=== PATIENT | female | born 1975 | race Caucasian/White ===

== ENCOUNTER 2016-12-14 16:11 | Observation (INO) | payer BC, OTHER ==
[~2016-12-14] VITALS: Ht 175.3 cm; Wt 114.0 kg
[2016-12-14 16:14] VITALS: BP 102/55; PULSE 70; RESP 22; TEMP 98.3; O2SAT 99
--- NOTE | 2016-12-14 16:20 | PD ---
Physical Exam Date Seen by Provider: Dec 14, 2016 Time Seen by Provider: 16:16 Narrative 41 YOWF C/O LBP FROM DR PABLO. PAIN WORSE TODAY AFTER BENDING DOWN. NO SADDLE ANETHESIA. NO BOWEL OR BLADDER CHANGES. POS PAIN AND TINGLING DOWN BOTH LEGS. PAIN 10/10. VS NOTED WAITING FOR BED PLACEMENT Data Data Last Documented VS Vital Signs Date Time Temp Pulse Resp B/P (MAP) Pulse Ox O2 Delivery O2 Flow Rate FiO2 12/14/16 16:14 98.3 70 22 102/55 (71) 99 Room Air [facility] Medical Record Reviewed: No Supervised Visit with VENKAT: Yes Alex Fine Dec 14, 2016 16:20
[2016-12-14] MEDS ORDERED: LEVO.15 PO (17:08)
[2016-12-14] MEDS ORDERED: CYCL5TAB PO (17:08)
[2016-12-14] MEDS ORDERED: ONDANSETRON HCL 4 MG/2 ML VIAL IVP ONE (17:30)
[2016-12-14] MEDS ORDERED: ORPHENADRINE INJ 60 MG/2 ML AMP IM ONE (17:30)
[2016-12-14] MEDS ORDERED: MORPHINE SULFATE 8 MG/ML INJ IV PUSH ONE (17:30)
[2016-12-14] MEDS ORDERED: SODIUM CHLORIDE 0.9% FLUSH 10 ML FLUSH IV FLUSH PRN ×2 (17:30→22:45)
--- NOTE | 2016-12-14 17:37 | PD ---
HPI Chief Complaint: Back/ Neck Pain or Injury Time Seen by Provider: 17:18 Travel History International Travel<30 days: No Contact w/Intl Traveler<30days: No Traveled to known affect area: No History of Present Illness HPI Patient is a 41-year-old female presents emergency Department with low back pain. Patient states she has a history of degenerative disc disease. She is followed by Dr. Aranda. She states that she bent over this morning and felt a pop in her back and has been unable to ambulate since and is having extreme radiculopathy symptoms down both legs. She's also been having some pain and numbness and tingling in both legs as well as in the inguinal fold area. She denies any true saddle anesthesia. She's not urinated since this morning but states that she has not been drinking any fluids because she doesn't think that she can get up off the toilet if she had to get on it. She denies any fever denies any history of IV drug use. She did go and see Dr. Aranda's PA today who sent her here to evaluate for possible slipped disc. [facility] Past Medical History Neurologic: Yes (3 bulged discs in back, lumbar region) Influenza Vaccination: No ?: Not Dilation and Curettage (D&C): Yes (ablation) Past Surgical History Other Surgery: Yes (breast reduction) Social History Alcohol Use: Yes (3-4 beer/liquor 1-2 times weekly) Tobacco Use: No Substance Use: No Allergies-Medications (Allergen,Severity, Reaction): Coded Allergies: No Known Allergies (Verified , 12/14/16) Reported Meds & Prescriptions Reported Meds & Active Scripts Active Reported Flexeril (Cyclobenzaprine HCl) 5 Mg Tab 5 Mg PO TID Synthroid (Levothyroxine Sodium) 150 Mcg Tab 150 Mcg PO DAILY Review of Systems Except as stated in HPI: all other systems reviewed are Neg Physical Exam Narrative GENERAL: Well-developed well-nourished appears uncomfortable SKIN: Focused skin assessment warm/dry. HEAD: Atraumatic. Normocephalic. EYES: Pupils equal and round. No scleral icterus. No injection or drainage. ENT: No nasal bleeding or discharge. Mucous membranes pink and moist. NECK: Trachea midline. No JVD. CARDIOVASCULAR: Regular rate and rhythm. No murmur appreciated. RESPIRATORY: No accessory muscle use. Clear to auscultation. Breath sounds equal bilaterally. GASTROINTESTINAL: Abdomen soft, non-tender, nondistended. Hepatic and splenic margins not palpable. MUSCULOSKELETAL: No obvious deformities. No clubbing. No cyanosis. No edema. No midline CT or L-spine tenderness. There is some tenderness just to the left of midline in the low lumbar spine. Patient has 5 out of 5 strength in both lower extremities in plantar and dorsal flexion as well as flexion and extension at the knee. Positive straight leg raise on the right. NEUROLOGICAL: Awake and alert. No obvious cranial nerve deficits. Motor grossly within normal limits. Normal speech. sensory to light touch is intact bilaterally equal over L4-L5 and S1 dermatomes. Reflexes are 2+ and bilaterally equal. Rectal tone normal. PSYCHIATRIC: Appropriate mood and affect; insight and judgment normal. Data Data Last Documented VS Vital Signs Date Time Temp Pulse Resp B/P (MAP) Pulse Ox O2 Delivery O2 Flow Rate FiO2 12/14/16 19:40 Room Air 12/14/16 18:11 96 12/14/16 16:14 98.3 70 22 Orders Orders Mri L Spine W/O Contrast (12/14/16 17:24) Complete Blood Count With Diff (12/14/16 17:24) Basic Metabolic Panel (Bmp) (12/14/16 17:24) Iv Access Insert/Monitor (12/14/16 17:24) Ecg Monitoring (12/14/16 17:24) Oximetry (12/14/16 17:24) Ondansetron Inj (Zofran Inj) (12/14/16 17:30) Morphine Inj (Morphine Inj) (12/14/16 17:30) Orphenadrine Inj (Norflex Inj) (12/14/16 17:30) Sodium Chlor 0.9% 1000 Ml Inj (Ns 1000 M (12/14/16 19:45) Admit Order (Ed Use Only) (12/14/16 ) Consult Orthopedic (12/14/16 ) [facility] Medical Decision Making Medical Screen Exam Complete: Yes Emergency Medical Condition: Yes Differential Diagnosis Cauda equina syndrome seems unlikely, degenerative disc disease, ruptured intervertebral disc, occult fracture Narrative Course Patient roomed in the emergency department she does appear somewhat painful. Given her degenerative disc disease in her numbness and tingling in the inguinal fold area I will pursue an MRI. Last 24 hours Impressions Lumbar Spine MRI 12/14/16 3674 Signed Impressions: Service Date/Time: December 19:35 - CONCLUSION: 1. Degenerative disc disease with Modic endplate changes limited to L4-5 and L5- S1. 2. Diffuse disc bulge at L4-5. Spinal canal and neural foramina remain patent. 3. Left posterior disc protrusion at L5-S1 which encroaches on the lateral recess and appears to compromise the nerve rootlets of S1 as they move laterally. This probably explains any left-sided symptoms the patient is experiencing. Toni Long MD The results were reviewed with the patient as well as Dr. Henson who is on for Dr. Aranda and at this point recommends checking a postvoid residual. The patient is unable to ambulate despite pain management with morphine and Norflex. Her pain is better but she was unable to bear weight secondary to pain. She will be placed into admission under Dr. Romero. Post void residual was checked and was 350 cc. Diagnosis Primary Impression: Intractable back pain Additional Impressions: Sciatica Inability to ambulate due to multiple joints Admitting Information Admitting Physician Requests: Observation Condition: Stable Jamie Gallardo MD Dec 14, 2016 17:37
[2016-12-14 18:11] VITALS: O2SAT 96
[2016-12-14] MEDS ORDERED: SODIUM CHLOR 0.9% 1000 ML INJ 1,000 ML IV ONE (19:45)
--- NOTE | 2016-12-14 20:30 | RADRPT ---
EXAM DATE/TIME: 12/14/2016 19:35 [place] COMPARISON: No previous studies available for comparison. INDICATIONS : Pain. MEDICAL HISTORY : None. SURGICAL HISTORY : Uterine ablation. ENCOUNTER: Initial ACUITY: 1 day PAIN SCORE: 8/10 LOCATION: Lower back. TECHNIQUE: Multiplanar multisequence MRI of the lumbar spine was performed without contrast. FINDINGS: Sagittal T1, T2 and inversion recovery images to degenerative disc disease predominantly limited to t he L4-5 and L5-S1 levels with Modic endplate changes and disc bulges. The bulge at L4 is more diffuse with a focal left posterior disc at L5-S1. These both encroach on the spinal canal. Vertebral body h eights are maintained without fracture or listhesis. Detailed axial images as follows: T12-L1: The thecal sac has a normal diameter. No evidence of disc bulge or protrusion. The neural foramina are patent bilaterally. L1-L2: The thecal sac has a normal diameter. No evidence of disc bulge or protrusion. The neural foramina are patent bilaterally. L2-L3: The thecal sac has a normal diameter. No evidence of disc bulge or protrusion. The neural foramina are patent bilaterally. L3-L4: The thecal sac has a normal diameter. No evidence of disc bulge or protrusion. The neural foramina are patent bilaterally. L4-L5: Multiple diffuse disc bulge. Spinal canal and neural foramina remain patent L5-S1: Left posterior disc encroaches on the lateral recess and appears to compromise the nerve rootlets of S1 as they move laterally. Otherwise, both neural foramina are adequate. CONCLUSION: 1. Degenerative disc disease with Modic endplate changes limited to L4-5 and L5-S1. 2. Diffuse disc bulge at L4-5. Spinal canal and neural foramina remain patent. 3. Left posterior disc protrusion at L5-S1 which encroaches on the lateral recess and appears to comp romise the nerve rootlets of S1 as they move laterally. This probably explains any left-sided symptom s the patient is experiencing. Toni Long MD on December 14, 2016 at 20:21 Board Certified Radiologist. This report was verified electronically.
[2016-12-14] MEDS ORDERED: NALOXONE HCL 0.4 MG/ML AMP IV PRN (22:45)
[2016-12-14 22:51] VITALS: BP 122/56; PULSE 67; RESP 22; O2SAT 98
[2016-12-14] MEDS: HYDROmorphone HCL PF 1 MG/ML VIAL IV PUSH PRN (22:51)
[2016-12-14 23:41] LABS: AUTOMATED NEUTROPHIL # 4.9 TH/MM3 (1.8-7.7); BASOPHIL # 0.1 TH/MM3 (0-0.2); BASOPHIL % 0.9 % (0.0-2.0); EOSINOPHIL # 0.1 TH/MM3 (0-0.4); EOSINOPHIL % 0.6 % (0.0-4.0); HEMO FLAGS DIFF FINAL; LYMPH % 32.4 % (9.0-44.0); LYMPHOCYTE # 2.8 TH/MM3 (1.0-4.8); MEAN CELL VOLUME 87.8 FL (80.0-100.0); MONO % 8.8 % (0.0-8.0); NEUT % 57.3 % (16.0-70.0); PLATELET COUNT 338 TH/MM3 (150-450); RED BLOOD COUNT 4.09 MIL/MM3 (4.00-5.30); RED CELL DISTRIBUTION WIDTH 13.8 % (11.6-17.2); WHITE BLOOD COUNT 8.5 TH/MM3 (4.0-11.0)
[2016-12-15] VITALS (7 sets, daily range): BP systolic 118–132; BP diastolic 64–71; PULSE 58–78; RESP 16–18; TEMP 98.1–98.8; O2SAT 97–98
[2016-12-15 00:05] LABS: BICARBONATE 28.8 MEQ/L (21.0-32.0); POTASSIUM 3.9 MEQ/L (3.5-5.1)
[2016-12-15] MEDS: HYDROmorphone HCL PF 1 MG/ML VIAL IV PUSH PRN ×2 (05:22→08:17)
[2016-12-15 08:19] LABS: BASOPHIL % 0.5 % (0.0-2.0); EOSINOPHIL # 0.1 TH/MM3 (0-0.4); EOSINOPHIL % 0.9 % (0.0-4.0); HEMATOCRIT 36.7 % (35.0-46.0); HEMO FLAGS DIFF FINAL; LYMPH % 20.5 % (9.0-44.0); MEAN CELL VOLUME 88.4 FL (80.0-100.0); MEAN CORPUSCULAR HEMOGLOBIN 28.9 PG (27.0-34.0); MEAN CORPUSCULAR HGB CONC 32.7 % (32.0-36.0); MONO % 6.8 % (0.0-8.0); NEUT % 71.3 % (16.0-70.0); PLATELET COUNT 328 TH/MM3 (150-450); RED BLOOD COUNT 4.16 MIL/MM3 (4.00-5.30); RED CELL DISTRIBUTION WIDTH 13.9 % (11.6-17.2); WHITE BLOOD COUNT 9.8 TH/MM3 (4.0-11.0)
[2016-12-15 08:46] LABS: BICARBONATE 27.3 MEQ/L (21.0-32.0); POTASSIUM 3.7 MEQ/L (3.5-5.1)
[2016-12-15] MEDS ORDERED: SODIUM CHLORIDE 0.9% FLUSH 10 ML FLUSH IV FLUSH SCH (09:00)
[2016-12-15] MEDS ORDERED: LEVOTHYROXINE SODIUM 150 MCG TAB PO SCH (09:30)
--- NOTE | 2016-12-15 09:45 | HHI.HP ---
[facility] Primary [facility] Physician No Primary Care Physician Admission Diagnosis Inability to ambulate, Intractible Back pain. Diagnoses: Chief Complaint: back pain Travel History International Travel<30 Days: No Contact w/Intl Traveler <30 Da: No Traveled to Known Affected Are: No History of Present Illness Written by Kristin Hyde, acting as scribe for Dr. Soto on 12/15/16 at 09:43. This note was transcribed by scribe Kristin Hyde PA-C. I, Dr. Hans Soto personally performed the history, physical exam, and medical decision making; and confirmed the accuracy of the information in the transcribed note. Authenticated by Dr. Hans Soto on 12/15/16 at 23:34. 41-year-old female with history of chronic back pain, hypothyroidism, presents with a 1 day history of acute onset of low back pain. The patient reports yesterday she was taking clothes out of the washer and into the dryer when she immediately felt a "pop" and pulling sensation in her lower back. She was unable to ambulate immediately after. Denies fall. She locates the pain diffusely across the lower back with radiation down both buttocks and hips, worse on the right side, with bilateral distal lower extremity tingling down the legs. She follows with orthopedic surgeon Dr. Funez, and was seen in the office yesterday after the incident. MRI was ordered but unable to be done as outpatient, and pain was too severe to go home therefore the DONOVAN referred her to the ER. Since her arrival to the ER, the patient complains of urinary retention and has not been able to urinate. A cardozo was placed and removed while in the ER and now the patient still cannot void spontaneously. Denies any fevers/chills, abdominal pain, nausea/vomiting, or diarrhea. The patient has flexeril and some old lortab but she usually doesn't take these since she only has minimal relief. The patient also sees Dr. Johnson with pain management in [place]. She has had 2 steroid injections in the lumbar spine, most recently 3-4 weeks ago, and she states the injections help her the most. She is requesting neurosurgery evaluation. The patient has no other medical complaints at this time, including no chest pain, shortness of breath, or abdominal complaints. Review of Systems Except as stated in HPI: all other systems reviewed are Neg Past Family Social History Past Medical History Hypothyroidism Chronic low back pain Cervical spine disc bulge Past Surgical History Breast reduction 17years ago Reported Medications Flexeril (Cyclobenzaprine HCl) 5 Mg Tab 5 Mg PO TID Synthroid (Levothyroxine Sodium) 150 Mcg Tab 150 Mcg PO DAILY Allergies: Coded Allergies: No Known Allergies (Verified , 12/14/16) Active Ordered Medications Current Medications Medications (Trade) Dose Ordered Sig/Jacob Route Start Time Stop Time Status Last Admin (NS Flush) 2 ml UNSCH PRN IV FLUSH 12/14/16 22:45 (NS Flush) 2 ml BID IV FLUSH 12/15/16 09:00 12/15/16 08:15 (Narcan Inj) 0.4 mg UNSCH PRN IV 12/14/16 22:45 (Dilaudid Pf Inj) 0.2 mg Q2H PRN IV PUSH 12/14/16 22:45 12/15/16 08:17 (Synthroid) 150 mcg DAILY@0600 PO 12/15/16 09:30 12/15/16 09:33 Family History Father with hypertension, stroke at age 62 Mother with hypertension Social History Denies tobacco use Social alcohol use, 1-2x per week Denies any illicit drug use Physical Exam Vital Signs Vital Signs Date Time Temp Pulse Resp B/P (MAP) Pulse Ox O2 Delivery O2 Flow Rate FiO2 12/15/16 07:41 98.3 58 16 121/67 (85) 97 12/15/16 07:00 58 12/15/16 05:52 12 12/15/16 04:41 98.8 78 18 121/68 (85) 98 12/15/16 04:04 59 12/15/16 01:28 98.1 74 18 118/64 (82) 98 12/15/16 01:04 68 12/14/16 22:51 67 22 122/56 (78) 98 Room Air 12/14/16 19:40 Room Air 12/14/16 18:11 96 Room Air 12/14/16 16:14 98.3 70 22 102/55 (71) 99 Room Air Physical Exam GENERAL: Well-nourished, well-developed middle aged female patient in NAD. SKIN: Warm and dry. No rash. HEAD: Normocephalic. Atraumatic. EYES: Pupils equal and round. No scleral icterus. No injection or drainage. ENT: No nasal bleeding or discharge. Mucous membranes pink and moist. NECK: Supple. Trachea midline. CARDIOVASCULAR: Regular rate and rhythm. S1, S2 noted. No murmur appreciated. RESPIRATORY: No accessory muscle use. Clear to auscultation. Breath sounds equal bilaterally. GASTROINTESTINAL: Abdomen soft, non-tender, nondistended. Normoactive bowel sounds x4. MUSCULOSKELETAL: No obvious deformities. Extremities without clubbing, cyanosis , or edema. Bilateral straight leg raise produces back pain. NEUROLOGICAL: Awake and alert. No obvious cranial nerve deficits. Motor grossly within normal limits. 5/5 muscle strength with plantar/dorsiflexion bilaterally, however 4/5 strength with hip flexion secondary to pain. 5/5 strength of bilateral upper extremities. Normal speech. PSYCHIATRIC: Appropriate mood and affect; insight and judgment normal. Laboratory Laboratory Tests Test 12/14/16 23:30 12/15/16 07:09 White Blood Count 8.5 9.8 Red Blood Count 4.09 4.16 Hemoglobin 11.9 12.0 Hematocrit 36.0 36.7 Mean Corpuscular Volume 87.8 88.4 Mean Corpuscular Hemoglobin 29.0 28.9 Mean Corpuscular Hemoglobin Concent 33.0 32.7 Red Cell Distribution Width 13.8 13.9 Platelet Count 338 328 Mean Platelet Volume 7.5 8.0 Neutrophils (%) (Auto) 57.3 71.3 Lymphocytes (%) (Auto) 32.4 20.5 Monocytes (%) (Auto) 8.8 6.8 Eosinophils (%) (Auto) 0.6 0.9 Basophils (%) (Auto) 0.9 0.5 Neutrophils # (Auto) 4.9 7.0 Lymphocytes # (Auto) 2.8 2.0 Monocytes # (Auto) 0.7 0.7 Eosinophils # (Auto) 0.1 0.1 Basophils # (Auto) 0.1 0.0 CBC Comment DIFF FINAL DIFF FINAL Differential Comment Blood Urea Nitrogen 9 11 Creatinine 0.90 0.82 Random Glucose 99 100 Calcium Level 8.1 7.7 Sodium Level 140 139 Potassium Level 3.9 3.7 Chloride Level 107 105 Carbon Dioxide Level 28.8 27.3 Anion Gap 4 7 Estimat Glomerular Filtration Rate 69 76 Result Diagram: 12/15/16 0709 12/15/16 0709 Imaging Last Impressions Lumbar Spine MRI 12/14/16 [id number] Signed Impressions: Service Date/Time: December 19:35 - CONCLUSION: 1. Degenerative disc disease with Modic endplate changes limited to L4-5 and L5- S1. 2. Diffuse disc bulge at L4-5. Spinal canal and neural foramina remain patent. 3. Left posterior disc protrusion at L5-S1 which encroaches on the lateral recess and appears to compromise the nerve rootlets of S1 as they move laterally. This probably explains any left-sided symptoms the patient is experiencing. MD Zaida Ruano VTE Risk Assessment Zaida VTE Risk Assessment: No/Low Risk (score <= 1) Caprini Risk Assessment Model Point Value = 1 Point Value = 2 Point Value = 3 Point Value = 5 Age 41-60 Minor surgery BMI > 25 kg/m2 Swollen legs Varicose veins or History of unexplained or recurrent spontaneous Oral contraceptives or hormone replacement Sepsis (< 1 month) Serious lung disease, including pneumonia (< 1 month) Abnormal pulmonary function Acute myocardial infarction Congestive heart failure (< 1 month) History of inflammatory bowel disease Medical patient at bed rest Age 61-74 Arthroscopic surgery Major open surgery (> 45 min) Laparoscopic surgery (> 45 min) Malignancy Confined to bed (> 72 hours) Immobilizing plaster cast Central venous access Age >= 75 History of VTE Family history of VTE Factor V Leiden Prothrombin [id number] Lupus anticoagulant Anticardiolipin antibodies Elevated serum homocysteine Heparin-induced thrombocytopenia Other congenital or acquired thrombophilia Stroke (< 1 month) Elective arthroplasty Hip, pelvis, or leg fracture Acute spinal cord injury (< 1 month) Prophylaxis Regimen Total Risk Factor Score Risk Level Prophylaxis Regimen 0-1 Low Early ambulation 2 Moderate Order ONE of the following: *Sequential Compression Device (SCD) *Heparin 5000 units SQ BID 3-4 Higher Order ONE of the following medications: *Heparin 5000 units SQ TID *Enoxaparin/Lovenox 40 mg SQ daily (WT < 150 kg, CrCl > 30 mL/min) *Enoxaparin/Lovenox 30 mg SQ daily (WT < 150 kg, CrCl > 10-29 mL/min) *Enoxaparin/Lovenox 30 mg SQ BID (WT < 150 kg, CrCl > 30 mL/min) AND/OR *Sequential Compression Device (SCD) 5 or more Highest Order ONE of the following medications: *Heparin 5000 units SQ TID (Preferred with Epidurals) *Enoxaparin/Lovenox 40 mg SQ daily (WT < 150 kg, CrCl > 30 mL/min) *Enoxaparin/Lovenox 30 mg SQ daily (WT < 150 kg, CrCl > 10-29 mL/min) *Enoxaparin/Lovenox 30 mg SQ BID (WT < 150 kg, CrCl > 30 mL/min) AND *Sequential Compression Device (SCD) Assessment and Plan Problem List: (1) Lumbar disc herniation with radiculopathy ICD Code: M51.16 - Intervertebral disc disorders with radiculopathy, lumbar region Assessment and Plan 41-year-old female with history of chronic back pain, hypothyroidism, presents with a 1 day history of acute onset of low back pain. Lumbar Disc Herniation with Acute on Chronic Back Pain: Lumbar spine MRI images reviewed, shows diffuse disc bulge at L4-5, left posterior disc protrusion at L5 -S1 which encroaches on the lateral recess and appears to compromise the nerve rootlets of S1. -Consult orthopedics, seen by Dr. Funez -Continue pain control with ibuprofen, oxycodone prn pain scale, and IV dilaudid prn breakthrough pain -Valium 5mg bid prn muscle spasms -K thermia pad -Consult neurosurgery -Consult PT Hypothyroidism: chronic, stable -continue home levothyroxine DVT Prophylaxis: teds/SCDs Update around 6PM on 12/15/2016: Patient was evaluated by neurosurgery. No immediate neurosurgery was indicated. Patient also voided on her own and did not require a Cardozo Catheter. Neurosurgery recommended epidural steroid injection which patient has been receiving periodically by her pain management doctor. At this time, IR is not able to perform an elective steroid injection procedure. Patient would rather go home. She will follow up with her pain management doctor. Patient is hemodynamically stable. We discharged patient home. RN called around and helped patient's find a walker and bedside commode for patient. Discharge patient to home Condition on discharge: Improved Regular Diet as tolerated Ad Jessica activity Rx written: - Valium 5mg Q8hrs PRN #30 - Oxycodone 10mg Q6hrs PRN #28 - Prednisone 20mg BID X 5 days. Follow-up with Neurosurgery, orthopedic surgery and pain management clinic. Code Status Full Code Discussed Condition With Patient, patient's , CDU Kristin Randle PA-C Dec 15, 2016 09:45 Summer Soto DO Dec 15, 2016 23:35
[2016-12-15] MEDS ORDERED: ACETAMINOPHEN/HYDROcodone 325 MG/5 MG TAB PO PRN (10:00)
[2016-12-15] MEDS ORDERED: ACETAMINOPHEN/HYDROcodone 325 MG/7.5 MG TAB PO PRN (10:00)
[2016-12-15] MEDS ORDERED: ACETAMINOPHEN 325 MG TAB PO PRN (10:00)
[2016-12-15] MEDS ORDERED: HYDROmorphone HCL PF 1 MG/ML VIAL IV PUSH PRN (10:00)
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
[2016-12-15] MEDS ORDERED: DIAZEPAM 5 MG TAB PO ONE (10:30)
[2016-12-15] MEDS ORDERED: IBUPROFEN 600 MG TAB PO PRN (10:30)
[2016-12-15] MEDS ORDERED: DIAZEPAM 5 MG TAB PO PRN (10:30)
--- NOTE | 2016-12-15 15:30 | PD.CONS ---
HPI Consult Requested By Primary Care Physician No Primary Care Physician History of Present Illness This is a 41-year-old female with chronic back and leg pain. She had an MRI scan performed the at [facility] in May which showed bulging of the disc with some degenerative changes at L4-5. L5-S1 with a Central bulging disc eccentric to the left. She was sent to [facility] for epidural steroid injections and saw Dr. Johnson. after the injection she improved and did fairly well. Yesterday while at home, she was bent over, had felt a "pop" in her back and had acute onset of predominately back pain radiating into the right leg, with bilateral leg pain and tingling. She was seen at Dr Aranda's office. X-rays were unremarkable. She is sent to the emergency room at [facility]. She was evaluated by the emergency room doctor and placed in holding for pain control. MRI lumbar spine was ordered. Neurosurgical consultation was requested. Past Family Social History Allergies: Coded Allergies: No Known Allergies (Verified , 12/14/16) Past Medical History Hypothyroidism Chronic back pain Past Surgical History A breast reduction. Reported Medications 1. Flexeril 2. Synthroid Active Ordered Medications Current Medications Ondansetron HCl (Zofran Inj) 4 mg ONCE ONCE IVP Last administered on 12/14/16 18:10; Start 12/14/16 at 17:30; Stop 12/14/16 at 17:31; Status DC Sodium Chloride (NS Flush) 2 ml UNSCH PRN IV FLUSH FLUSH AFTER USING IV ACCESS ; Start 12/14/16 at 17:30; Status Cancel Morphine Sulfate (Morphine Inj) 5 mg ONCE ONCE IV PUSH Last administered on 18:10; Start 12/14/16 at 17:30; Stop 12/14/16 at 17:31; Status DC Orphenadrine Citrate (Norflex Inj) 60 mg ONCE ONCE IM Last administered on 12/14 18:09; Start 12/14/16 at 17:30; Stop 12/14/16 at 17:31; Status DC Sodium Chloride 1,000 ml @ 999 mls/hr BOLUS ONCE IV Last administered on 19:45; Start 12/14/16 at 19:45; Stop 12/14/16 at 20:45; Status DC Sodium Chloride (NS Flush) 2 ml UNSCH PRN IV FLUSH FLUSH AFTER USING IV ACCESS ; Start 12/14/16 at 22:45 Sodium Chloride (NS Flush) 2 ml BID IV FLUSH Last administered on 12/15/16 08: 15; Start 12/15/16 at 09:00 Naloxone HCl (Narcan Inj) 0.4 mg UNSCH PRN IV SEE LABEL COMMENTS; Start at 22:45 Hydromorphone HCl (Dilaudid Pf Inj) 0.2 mg Q2H PRN IV PUSH PAIN >5 Last administered on 12/15/16 08:17; Start 12/14/16 at 22:45; Stop 12/15/16 at 09:53; Status DC Levothyroxine Sodium (Synthroid) 150 mcg DAILY@0600 PO Last administered on 12/15 09:33; Start 12/15/16 at 09:30 Hydromorphone HCl (Dilaudid Pf Inj) 0.5 mg Q3H PRN IV PUSH breakthrough pain; Start 12/15/16 at 10:00 Acetaminophen (Tylenol) 650 mg Q4H PRN PO headache/fever/pain1-4; Start at 10:00; Stop 12/15/16 at 10:30; Status DC Acetaminophen/ Hydrocodone Bitart (Burdine 7.5-325 Mg) 1 tab Q4H PRN PO pain scale 8-10; Start 12/15/16 at 10:00; Stop 12/15/16 at 10:30; Status DC Acetaminophen/ Hydrocodone Bitart (Burdine 5-325 Mg) 1 tab Q4H PRN PO pain scale 5-7; Start 12/15/16 at 10:00; Stop 12/15/16 at 10:30; Status DC Ibuprofen (Motrin) 600 mg Q6H PRN PO headache/fever/pain1-4; Start 12/15/16 at 10:30 Oxycodone HCl (Roxicodone) 5 mg Q6H PRN PO pain scale 5-7 Last administered on 12/15/16 14:14; Start 12/15/16 at 10:30 Oxycodone HCl (Roxicodone) 10 mg Q6H PRN PO pain scale 8-10; Start 12/15/16 at 10:30 Diazepam (Valium) 5 mg ONCE ONCE PO Last administered on 12/15/16t 11:04; Start 12/15/16 at 10:30; Stop 12/15/16 at 10:42; Status DC Diazepam (Valium) 5 mg Q12H PRN PO muscle spasms; Start 12/15/16 at 10:30 Family History Her family history was reviewed and non contributory to this event Social History Drinks three to four beers one to two times weekly. Denies tobacco or substance abuse. Physical Exam Vital Signs Vital Signs Date Time Temp Pulse Resp B/P (MAP) Pulse Ox O2 Delivery O2 Flow Rate FiO2 12/15/16 07:41 98.3 58 16 121/67 (85) 97 12/15/16 07:00 58 12/15/16 05:52 12 12/15/16 04:41 98.8 78 18 121/68 (85) 98 12/15/16 04:04 59 12/15/16 01:28 98.1 74 18 118/64 (82) 98 12/15/16 01:04 68 12/14/16 22:51 67 22 122/56 (78) 98 Room Air 12/14/16 19:40 Room Air 12/14/16 18:11 96 Room Air 12/14/16 16:14 98.3 70 22 102/55 (71) 99 Room Air Physical Exam The patient is alert, awake and oriented to time, place and person. Speech is fluent. Higher cognitive functions are normal. Cranial nerve examination demonstrates the pupils to be equal, round, and reactive to light. Extra-ocular movements are intact. Facial motor and sensory function are normal and symmetrical. Gross hearing is intact, bilaterally. The uvula is midline and elevates symmetrically with the soft palate. Sternocleidomastoid and trapezius muscles have normal and symmetrical strength. Other cranial nerves are intact. Neck is soft and supple. Cervical spine has a full range of motion in anterior flexion, extension, lateral bending, and rotation without pain. There is no tenderness to palpation to the spinous processes or paraspinal muscles. Muscle testing reveals normal bulk and tone overall without rigidity, spasticity , fasciculations, or atrophy. Muscle strength is 5/5 in all muscle groups of both upper extremities including deltoid, biceps, triceps, brachioradialis, wrist extension and hearing aid specialist. In the lower extremities, strength is 5/5 in both iliopsoas, quadriceps, hamstrings, plantar flexion, dorsiflexion, and extensor hallicus longus. Straight leg raise reproduces back pain Sensory examination is intact to light touch and sharp/dull discrimination in both the upper and lower extremities, symmetrically. Deep tendon reflexes are 2+ and symmetrical in the biceps, triceps, and brachioradialis, bilaterally, in the upper extremities. In the lower extremities , the patellar and Achilles are 1+, bilaterally. There is a bilateral plantar flexion response. Hoffmanns sign is negative. There is no clonus or other abnormal reflexes noted. Cerebellar examination is intact to [id number] test, rapid rhythmic alternating motion. There is no dysmetria, dysdiadochokinesia, truncal ataxia, or tremor. Laboratory Laboratory Tests Test 12/14/16 23:30 12/15/16 07:09 White Blood Count 8.5 9.8 Red Blood Count 4.09 4.16 Hemoglobin 11.9 12.0 Hematocrit 36.0 36.7 Mean Corpuscular Volume 87.8 88.4 Mean Corpuscular Hemoglobin 29.0 28.9 Mean Corpuscular Hemoglobin Concent 33.0 32.7 Red Cell Distribution Width 13.8 13.9 Platelet Count 338 328 Mean Platelet Volume 7.5 8.0 Neutrophils (%) (Auto) 57.3 71.3 Lymphocytes (%) (Auto) 32.4 20.5 Monocytes (%) (Auto) 8.8 6.8 Eosinophils (%) (Auto) 0.6 0.9 Basophils (%) (Auto) 0.9 0.5 Neutrophils # (Auto) 4.9 7.0 Lymphocytes # (Auto) 2.8 2.0 Monocytes # (Auto) 0.7 0.7 Eosinophils # (Auto) 0.1 0.1 Basophils # (Auto) 0.1 0.0 CBC Comment DIFF FINAL DIFF FINAL Differential Comment Blood Urea Nitrogen 9 11 Creatinine 0.90 0.82 Random Glucose 99 100 Calcium Level 8.1 7.7 Sodium Level 140 139 Potassium Level 3.9 3.7 Chloride Level 107 105 Carbon Dioxide Level 28.8 27.3 Anion Gap 4 7 Estimat Glomerular Filtration Rate 69 76 Result Diagram: 12/15/16 0709 12/15/16 0709 Imaging Last 48 hours Impressions Lumbar Spine MRI 12/14/16 1724 Signed Impressions: Service Date/Time: December 19:35 - CONCLUSION: 1. Degenerative disc disease with Modic endplate changes limited to L4-5 and L5- S1. 2. Diffuse disc bulge at L4-5. Spinal canal and neural foramina remain patent. 3. Left posterior disc protrusion at L5-S1 which encroaches on the lateral recess and appears to compromise the nerve rootlets of S1 as they move laterally. This probably explains any left-sided symptoms the patient is experiencing. Toni Long MD Assessment and Plan Assessment and Plan 1. Bulging disc L4-5 2. Herniated nucleus pulposus central, left L5-S1. 3. Bilateral lumbosacral radiculitis. Attending Statement I discussed with her the alternatives of treatment including continuing conservative management, pain management by an interventional paint booth operator, or a surgical decompression as a last resort. She has failed to improve with conservative treatment including physical therapy, exercises, antiinflammatories. She reports significant relief in the past by epidural steroid injections performed by an interventional pain specialist I do not see significant neural compression. I recommend that she continues with nonoperative treatment with epidural steroid injections followed by physical therapy and a program of excercises for functional jew of her lumbar spine Continue neuro checks. Pulmonary.. Continue aggressive pulmonary toilette, nasotracheal suction, and breathing treatments with nebulizers. Nutrition. Oral diet Hypothyroidism.Continue Synthroid Renal. monitor closely urine output, BUN and creatinine Endocrine. Monitor serial Acu checks and SSI as needed in detail ID monitor for signs of infection Protonix for stress ulcer prophylaxis Alfonzo hose and SCD's for DVT prophylaxis Miles Holden MD Dec 15, 2016 15:30
--- NOTE | 2016-12-15 17:02 | HHI.DCPOC ---
Discharge Care Plan Diagnosis: (1) Lumbar disc herniation with radiculopathy (2) Intractable back pain Goals to Promote Your Health * To prevent worsening of your condition and complications * To maintain your health at the optimal level Directions to Meet Your Goals Take your medications as prescribed Follow your dietary instruction Follow activity as directed Keep your appointments as scheduled Take your immunizations and boosters as scheduled If your symptoms worsen call your PCP, if no PCP go to Urgent Care Center or Emergency Room Smoking is Dangerous to Your Health. Avoid second hand smoke Call the 24-hour hour crisis hotline for domestic abuse at Kristin Hyde PA-C Dec 15, 2016 17:02
[2016-12-15] MEDS ORDERED: PRED20 PO (17:27)
[2016-12-15] MEDS ORDERED: DIAZ5 PO (17:27)
[2016-12-15] MEDS ORDERED: OXYC-395 PO (17:27)
[2016-12-29] MEDS ORDERED: LEVO.15 PO (13:45)
[2017-01-26] MEDS ORDERED: OXYC-395 PO (13:14)
== END 2016-12-15 18:05 | disposition home or self-care (01) ==
LOC: NEPD 16:11 → NEDA 22:35 → NEPFCDU 12-15 00:42
PROVIDERS: ADMIT Hospitalist; ATTEND Hospitalist
DX: M51.16 Intervertebral disc disorders with radiculopathy, lumbar region (principal); M51.27 Other intervertebral disc displacement, lumbosacral region; M79.604 Pain in right leg; M79.605 Pain in left leg; E03.9 Hypothyroidism, unspecified; X50.9XXA Other and unspecified overexertion or strenuous movements or postures, initial encounter; Y93.E2 Activity, laundry; Y92.019 Unspecified place in single-family (private) house as the place of occurrence of the external cause; G89.29 Other chronic pain
CPT/HCPCS: 72148; 80048; 85025; 96361; 96372; 96374; 96375; 96376; 97162; 99285; G0378; G8987; G8988; J1170; J2270; J2360; J2405; J7030

== ENCOUNTER → 2017-01-16 | Outpatient (CLI) | payer OTHER ==
[~2017-01-16] MED LIST: DIAZ5 PO; LEVO.15 PO; OXYC-395 PO; PRED20 PO
[2017-01-16 09:25] LABS: AUTOMATED NEUTROPHIL # 4.9 TH/MM3 (1.8-7.7); BASOPHIL # 0.1 TH/MM3 (0-0.2); BASOPHIL % 0.8 % (0.0-2.0); EOSINOPHIL # 0.1 TH/MM3 (0-0.4); EOSINOPHIL % 1.6 % (0.0-4.0); HEMATOCRIT 39.1 % (35.0-46.0); HEMO FLAGS DIFF FINAL; LYMPH % 29.5 % (9.0-44.0); LYMPHOCYTE # 2.5 TH/MM3 (1.0-4.8); MEAN CELL VOLUME 89.3 FL (80.0-100.0); MEAN CORPUSCULAR HEMOGLOBIN 29.5 PG (27.0-34.0); MONO % 9.2 % (0.0-8.0); NEUT % 58.9 % (16.0-70.0); PLATELET COUNT 374 TH/MM3 (150-450); RED BLOOD COUNT 4.38 MIL/MM3 (4.00-5.30); RED CELL DISTRIBUTION WIDTH 13.1 % (11.6-17.2); WHITE BLOOD COUNT 8.4 TH/MM3 (4.0-11.0)
[2017-01-16 09:28] LABS: APTT (PATIENT) 27.5 SEC (24.3-30.1); INTERNATIONAL NORMALIZED RATIO 0.9 RATIO; PROTHROMBIN TIME - PATIENT 10.1 SEC (9.8-11.6)
[2017-01-16 09:53] LABS: BACTERIA, URINE RARE /hpf; BLOOD, URINE MOD (NEG); COMMENT (UR) CULT NOT INDICATED; CULTURE IF INDICATED CULT NOT INDICATED; GLUCOSE,URINE NEG (NEG); KETONE, URINE NEG (NEG); MUCUS URINE FEW /lpf (OCC); NITRITE,URINE NEG (NEG); PH, URINE 5.5 (5.0-8.5); SQUAMOUS EPITHELIAL CELL URINE 1 /hpf (0-5); URINE COLOR YELLOW (YELLW/STRAW)
[2017-01-16 09:55] LABS: ANION GAP 6 MEQ/L (5-15); AST (GOT) 12 U/L (15-37); BLOOD UREA NITROGEN 13 MG/DL (7-18); CHLORIDE 105 MEQ/L (98-107); GLOMERULAR FILTRATION RATE 80 ML/MIN (>89); GLUCOSE,FASTING 84 MG/DL (74-99); POTASSIUM 4.1 MEQ/L (3.5-5.1); SODIUM (NA) 138 MEQ/L (136-145)
[2017-01-16 09:59] LABS: ALKALINE PHOSPHATASE 80 U/L (45-117); ALT (GPT) 27 U/L (10-53); TOTAL BILIRUBIN ADULT 0.6 MG/DL (0.2-1.0)
--- NOTE | 2017-01-16 10:35 | RADRPT ---
EXAM DATE/TIME: 01/16/2017 09:42 [facility] COMPARISON: No previous studies available for comparison. INDICATIONS : Pre-op laminectomy. Evaluate for pneumonia, pneumothorax, and communicable diseases. MEDICAL HISTORY : None. SURGICAL HISTORY : Uterine ablation. ENCOUNTER: Initial ACUITY: 1 day PAIN SCORE: 0/10 LOCATION: Bilateral chest FINDINGS: PA and lateral views of the chest demonstrate the lungs to be symmetrically aerated without evidence of mass, infiltrate or effusion. The cardiomediastinal contours are unremarkable. Osseous structure s are intact. CONCLUSION: No acute disease. Get Hernandez MD on January 16, 2017 at 10:33 Board Certified Radiologist. This report was verified electronically.
--- NOTE | 2017-01-16 13:19 | EKG ---
Date Performed: 01/16/2017 Time Performed: 09:01:03 PTAGE: 41 years EKG: SINUS BRADYCARDIA BORDERLINE ECG NO PREVIOUS TRACING DOCTOR: Rey Justice Interpretating Date/Time 01/16/2017 13:17:11
== END ==
LOC: CPRE 08:26
PROVIDERS: ATTEND Neurological Surgery
DX: Z01.812 Encounter for preprocedural laboratory examination (principal); Z01.810 Encounter for preprocedural cardiovascular examination; Z01.811 Encounter for preprocedural respiratory examination; M51.16 Intervertebral disc disorders with radiculopathy, lumbar region
CPT/HCPCS: 36415; 71020; 80053; 81001; 85025; 85610; 85730; 93005

== ENCOUNTER 2017-06-26 08:30 | Inpatient (IN) | payer OTHER ==
[~2017-06-26] VITALS: Ht 175.3 cm; Wt 120.0 kg
[~2017-06-26 08:30] MED LIST changes: -DIAZ5 PO; +HYDR-3516 PO; -OXYC-395 PO; -PRED20 PO
[2017-06-26] MEDS ORDERED: LACTATED RINGER'S 1000 ML IV PRN (10:00)
[2017-06-26] MEDS ORDERED: POVIDONE IODINE 5% (ANTISEPSIS KIT) 4 APPLICATIONS EACH NARE PRN (10:00)
[2017-06-26] MEDS ORDERED: METOPROLOL TARTRATE 25 MG TAB PO PRN (10:00)
[2017-06-26] MEDS ORDERED: INSULIN HUMAN REGULAR 1,000 UNITS/10 ML VIAL SQ PRN (10:00)
[2017-06-26] MEDS ORDERED: VANCOMYCIN 1 GM/200 ML PREMIX IV SCH (10:00)
[2017-06-26] MEDS ORDERED: SODIUM CHLOR 0.9% 1000 ML INJ 1,000 ML IV SCH (10:00)
[2017-06-26] MEDS ORDERED: CHLORHEXIDINE GLUCONATE 2 % 1 PACK (2 CLOTHS) TOPICAL PRN (10:00)
[2017-06-26] MEDS ORDERED: SODIUM CHLORID 0.9% 500 ML IV PRN (10:00)
[2017-06-26] MEDS ORDERED: ONDANSETRON HCL 4 MG/2 ML VIAL ONE (10:48)
[2017-06-26] MEDS ORDERED: APREPITANT 40 MG CAP ONE (10:48)
[2017-06-26] MEDS ORDERED: ACETAMINOPHEN 1000 MG/100 ML 100 ML IV ONE (10:48)
[2017-06-26] MEDS ORDERED: ROCURONIUM INJ 50 MG/5 ML SYRINGE IV PUSH ONE (12:00)
[2017-06-26] MEDS ORDERED: LACTATED RINGER'S 1000 ML INJ 2,000 ML IV ONE (12:00)
[2017-06-26] MEDS ORDERED: ePHEDrine/NS 25 MG/5 ML SYRINGE IV ONE (12:00)
[2017-06-26] MEDS ORDERED: LIDOCAINE HCL 1% PF 5 ML SYRINGE OTHER ONE (12:00)
[2017-06-26] MEDS ORDERED: PROPOFOL 200 MG/20 ML AMP IV ONE (12:00)
[2017-06-26] MEDS ORDERED: ONDANSETRON HCL 4 MG/2 ML VIAL IV ONE (12:00)
[2017-06-26] MEDS ORDERED: DEXAMETHASONE SOD PHOS 4 MG/ML VIAL IV ONE (12:00)
[2017-06-26] MEDS ORDERED: THROMBIN (TOPICAL) 5,000 UNIT VIAL ONE (12:08)
[2017-06-26] MEDS ORDERED: GELFOAM SIZE 100 ONE (12:08)
[2017-06-26] MEDS ORDERED: ceFAZolin 2 GM PREMIX 50 ML ONE (12:08)
[2017-06-26] MEDS ORDERED: GENTAMICIN SULFATE 80 MG/2 ML VIAL ONE (12:09)
[2017-06-26] MEDS ORDERED: MORPHINE SULFATE 4 MG/ML INJ IV PUSH PRN ×2 (13:15)
[2017-06-26] MEDS ORDERED: NALOXONE HCL 0.4 MG/ML AMP IV PUSH PRN (13:15)
[2017-06-26] MEDS ORDERED: diphenhydrAMINE HCL 50 MG/ML VIAL IV PUSH PRN (13:15)
[2017-06-26] MEDS ORDERED: ceFAZolin INJ 1,000 MG VIAL IV ONE (14:42)
[2017-06-26] MEDS ORDERED: BUPIVACAINE/EPINEPHRINE 0.5% PF 30 ML VIAL ONE (14:45)
[2017-06-26] MEDS ORDERED: VANCOMYCIN HCL 1000 MG VIAL ONE (14:45)
[2017-06-26] MEDS ORDERED: DO NOT ADM ANY ANTICOAGULANT DRUGS PRN (16:44)
--- NOTE | 2017-06-26 16:51 | PD.OP ---
Operative Report Date of Surgery: Jun 26, 2017 Preoperative Diagnosis: Severe degenerative lumbar disk disease and recurrent disk herniation at L4-L5 Postoperative Diagnosis: Severe degenerative lumbar disk disease and recurrent disk herniation at L4-L5 Procedure: Redo L4-L5 right hemilaminectomy, interbody arthrodhesis using PEEK cage and autologous bone graft, L4-L5 instrumental fixation using transpedicular screws and rods, L4-L5 posterolateral fusion using autologous bone graft and demineralized bone matrix. Microsurgical dissection Anesthesia: general endotracheal Surgeon: Miles Holden Daycare Assistant(s): Merissa Fowler Operation and Findings: INDICATIONS FOR THE SURGICAL PROCEDURE Ms Menezes is a 42 year-old female who has history of a prior L4-5 discectomy. She presented with intractable mechanical back pain and amanda evidence of lower extremity radiculopathy and had severe degenerative disk disease with a massive recurrent disk hernistion causing severe neural copression. She failed maximum nonsurgical management including multiple modalities of conservative treatment as well as pain management interventions by an interventional pain specialist. A surgical decompression and arthrodhesis were indicated as a last resort. The [id number] details of the procedure, indications, alternatives, risks and potential complications were fully discussed with the patient. The patient fully understood. All the questions were answered. No guarantees were given. The patient voiced requesting the procedure and provided informed consents. The patient was offered the alternative of delaying the procedure and continuing with nonsurgical management. DETAILS OF THE SURGICAL PROCEDURE Prior to the procedure, the surgical incision was marked in the preoperative surgical holding room, and the procedure, risks, and potential complications revisited with the patient. Placement of electrodes for intraoperative neurophysiological monitoring was completed. The patient was taken to the operative room, and following induction of general anesthesia, endotracheal intubation was performed. A Perez catheter, bilateral MAGI hose and sequential compression devices were placed and kept throughout the procedure. The patient was positioned prone, over a Teddy table over a bolsters. All pressure in the preoperative surgical holding room points were carefully padded with eggcrate and gel mattress. The eyes were tapped shut after ointment was applied by the anesthesiologist to prevent corneal abrasion. A Kika hugger was placed over the expossed lower body to maintain control of the core body temperature. The electrophysiological team placed the needles and electrodes in their proper location and baseline SSEP's and EMG potentials were registered. The entrance to each pedicles was marked using a C arm. The lumbar region was prepped and draped in the usual sterile fashion. The surgical procedure was performed in several steps as follow: SURGICAL APPROACH Once the patient was positioned, a localizing cross-table lateral x-ray was performed with a C-arm. Two paramedian small incisions were outlined on the skin approximately 3cm from the midline. The skin incisions were made with a # 10 blade. Small bleeders were controlled with the cautery. The dissection was then carried out into deper planes and through the thoracolumbar fascia with a Bovie. The intermuscular septum was identified and the myscles were blunted dissected along the septum. The facets and transverse process of L4 and L5 were exposed and the proper anatomical landmarks were identidied. A microsurgical self-retaining retractor was placed on the incision, and a localizing lateralizing cross-table x-ray was performed with an instrument underneath a lamina of the lumbar spine. INSTRUMENTAL FIXATION At this point in the procedure, placement of bilateral transpedicular screws was necessary for stabilization of the spine. Initially, the entry point for the screw was selected anatomically at the junction of the facet, with the transverse process, and the pars interarticularis at L4 and L5. This was started with a Giamshetti needle followed by the use of a gillette wire. A tap was used to create the threads for the screws. Finally bilateral transpedicular screws were carefully placed bilaterally at L4, and L5 under fluoroscopic visualization. An appropriate purchase was achieved with all screws. The position of each screw was assessed anatomically with an AP, lateral , oblique Xrays. An intraoperative scan view of the spine was then performed using the iso-centric c-arm. Each screw was then assessed electrophysiologically stimulating each screw with a nerve stimulator. SURGICAL DECOMPRESSION AND REDO DISCECTOMY Once the level was confirmed, the margins of the prior laminectomy were exposed. There was extensive scar tissue from the prior surgery. Once the bony margins were exposed, a laminectomy was performed extending slightly the prior opening using the TPS drill with an AM-8 drill bit. A medial facetectomy was performed and the superior free border of the ligamentum flavum was dissected with a ligament dissector and removed with a thin footplate 2 mm Kerrison. The scar tssue was carefully dissected from the dural sac and the L5 nerve root was identified and followed towards its exit in the foramen. A foraminotomy was done. There was a massive disk extrusion, compressing thje lateral recess, anterior surface of the dural sdac, and L5 nerve root. At this point of the procedure, the extruded disk was carefully dissected and coagulated with a bipolar cautery. It was extremely scared to the dural sac, and during the microdiscectomy, a small durotomy was unavoidable, with CSF leak. This was repaired with a 6-0 Prolene suture. Then, a microdiscectomy was carried out in a standard fashion using a combination of straight and up-biting pituitary forceps. A reverse angle curette was applied underneath the posterior longitudinal ligament, and used to push the disk fragments into the disk space, so they can be safely removed with a pituitary forceps. INTERBODY ARTHRODHESIS Once the discectomy was completed, it was necessary to decorticate the endplates , in order to eliminate the cartilaginous endplate and to expose healthy bone appropriate to perform the interbody fusion. The endplates at L4-L5 were then thoroughly decorticated using increasing size bone charlene and ring curets, eliminating the cartilaginous fragments from both, the superior and inferior endplates. A disk space distractor was applied to the pedicle screws and gentle distraction was applied. This maneuver was assisted by the use of a disk distractor. Increased motility was noted at the disk, which was consistent with instability due to facet arthropathy. Once a thorough preparation of the disk space was achieved, the disk space was irrigated with antibiotic solution, and the interbody fusion was performed by carefully impacting an expandable PPEK cage filled with autologous iliac crest bone graft. The cage was cartefully expanded. A solid position of the cage with good purchase was achieved. The position of the cage was assessed anatomically with a probe and radiologically with the C-arm. POSTEROLATERAL FUSION The posterolateral fusion is a critical component to the procedure, to prevent future fatigue and failure of the instrumental fixation. Initially, the transverse processes of the vertebral bodies, lateral surface of the facets and the lateral gutters of the spine were carefully cleaned, eliminating all soft tissue and muscle attachments. The area was then irrigated with a large amount of antibiotic solution. Subsequently, the transverse processes, lateral surface of the facets, and lateral gutters of the spine were thoroughly decorticated using the TPS drill with a 5mm cutting wade, exposing cancellous bone, in preparation for the posterolateral fusion. The incision was again irrigated with antibiotic solution. Then, the posterolateral fusion was then performed by carefully packing the lateral gutters of the spine at L4-L5 with autologous bone combined with demineralized bone matrix. I packed as much bone as possible. COMPLETION OF THE INSTRUMENTATION AND CLOSURE The rods were brought to the field, applied to all the screws, and the screw caps were sequentially applied. Compression was performed between the pedicle screws, and final tightening of the screws was completed using a torque wrench. The incision was again thoroughly irrigated with several liters of antibiotic solution, and hemostasis secured with the bipolar cautery. A Valsalva Maneuver performed by the anesthesiologist failed to show any evidence of cerebrospinal fluid leak or bleeding. The incision was then closed in planes. 0 Vicryl was used in an interrupted fashion to close the thoracolumbar fascia and the superficial fascia. The subcutaneous tissue was then approximated using 3-0 Vicryl in an interrupted fashion. Special care was taken to avoid space. The skin was then closed with 4-0 Vicryl in a running, subcuticular fashion. Dermabond was applied to the skin. Each plane of closure was irrigated with antibiotic solution. At the end of the procedure the sponge, needle and instrument counts were all correct. Estimated blood loss was 100 cc. No blood transfusion was given. The entire procedure was performed using continuous electrophysiological monitoring of the somatosensorial evoked potentials and EMG. The patient received prophylactic antibiotics. The patient was then extubated and transferred to the recovery room in stable condition. Miles Holden MD Jun 26, 2017 16:51
[2017-06-26] MEDS ORDERED: PROPOFOL 200 MG/20 ML AMP ONE (16:56)
[2017-06-26] MEDS ORDERED: MORPHINE SULFATE 4 MG/ML INJ ONE ×2 (16:57)
[2017-06-26] MEDS ORDERED: MIDAZOLAM HCL 2 MG/2 ML VIAL ONE (16:57)
--- NOTE | 2017-06-26 17:02 | RADRPT ---
EXAM DATE/TIME: 06/26/2017 13:20 [facility] COMPARISON: No previous studies available for comparison. INDICATIONS : Fusion L4,L5 with screws and rods. MEDICAL HISTORY : None. SURGICAL HISTORY : Discectomy, lumbar. Uterine ablation. ENCOUNTER: Initial ACUITY: 1 day PAIN SCORE: Non-responsive. LOCATION: Lumbar spine. FINDINGS: Two view, intraoperative examination was performed. Targeted field of the lower lumbar spine shows po sterior interpeduncular bilateral fixation at L4-5 with intervertebral disc prostheses. Hardware is a ll intact. CONCLUSION: Appropriate postoperative appearance of the lower lumbar spine status post bilateral transpedicu lar fixation. Toni Long MD on June 26, 2017 at 16:59 Board Certified Radiologist. This report was verified electronically.
[2017-06-26] MEDS: HYDROmorphone HCL PCA 6 MG/30 ML IV SCH (18:05)
[2017-06-26] MEDS: NS + KCL 20 MEQ INJ 1,000 ML IV SCH (18:08)
[2017-06-26] MEDS: CEFAZOLIN INJ 2,000 MG in SODIUM CHLORIDE 0.9% INJ 100 ML IV SCH (20:00)
[2017-06-26 21:50] VITALS: BP 126/62; PULSE 64; RESP 18; TEMP 97.2; O2SAT 98
[2017-06-26] MEDS: PCA - TOTAL MG DILAUDID DELIVERED PER SHIFT SCH (23:00)
[2017-06-27] VITALS: BP 125/65; PULSE 66; RESP 17; TEMP 98; O2SAT 97
[2017-06-27] MEDS: ACETAMINOPHEN 325 MG TAB PO PRN (01:27)
[2017-06-27 03:30] VITALS: BP 122/75; PULSE 60; RESP 16; TEMP 98; O2SAT 98
[2017-06-27 03:59] LABS: BASOPHIL # 0.1 TH/MM3 (0-0.2); BASOPHIL % 0.4 % (0.0-2.0); HEMATOCRIT 33.4 % (35.0-46.0); HEMOGLOBIN 11.3 GM/DL (11.6-15.3); LYMPH % 9.7 % (9.0-44.0); LYMPHOCYTE # 1.4 TH/MM3 (1.0-4.8); MEAN CELL VOLUME 84.5 FL (80.0-100.0); MEAN CORPUSCULAR HEMOGLOBIN 28.5 PG (27.0-34.0); MEAN CORPUSCULAR HGB CONC 33.7 % (32.0-36.0); MEAN PLATELET VOLUME 7.6 FL (7.0-11.0); MONO % 6.6 % (0.0-8.0); NEUT % 83.3 % (16.0-70.0); PLATELET COUNT 380 TH/MM3 (150-450); RED BLOOD COUNT 3.95 MIL/MM3 (4.00-5.30); RED CELL DISTRIBUTION WIDTH 12.7 % (11.6-17.2); WHITE BLOOD COUNT 14.4 TH/MM3 (4.0-11.0)
[2017-06-27 04:17] LABS: TROPONIN I LESS THAN 0.02 NG/ML (0.02-0.05)
[2017-06-27 04:22] LABS: BICARBONATE 25.8 MEQ/L (21.0-32.0); CREATININE 0.63 MG/DL (0.50-1.00)
[2017-06-27] MEDS: CEFAZOLIN INJ 2,000 MG in SODIUM CHLORIDE 0.9% INJ 100 ML IV SCH ×2 (04:45→12:43)
[2017-06-27] MEDS: NS + KCL 20 MEQ INJ 1,000 ML IV SCH ×3 (04:46→23:20)
[2017-06-27] MEDS: PCA - TOTAL MG DILAUDID DELIVERED PER SHIFT SCH ×3 (06:00→22:00)
[2017-06-27] MEDS: LEVOTHYROXINE SODIUM 150 MCG TAB PO SCH (07:36)
[2017-06-27 08:29] VITALS: BP 119/57; PULSE 74; RESP 20; TEMP 98.1; O2SAT 100
[2017-06-27] MEDS: PANTOPRAZOLE SODIUM 40 MG VIAL IVP SCH (08:36)
--- NOTE | 2017-06-27 10:22 | HHI.NSPN ---
(Nicolette Farfan) Note Status Status: Progress Note (Nicolette Farfan) Interval History Interval History Ms. Menezes s/p redo L4-L5 right hemilaminectomy, interbody arthrodesis using PEEK cage and autologous bone graft, L4-L5 instrumental fixation using transpedicular screws and rods, L4-L5 posterolateral fusion using autologous bone graft and demineralized bone matrix. Microsurgical dissection on Jun 26, 2017 for severe degenerative lumbar disk disease and recurrent disk herniation at L4-L5. 06/27: doing well, remains bed rest. denies chest pain, difficulty breathing. surgical pain controlled on CHEF FRENCH. pulse ox 98%. (Nicolette Farfan) Labs, Micro, & Vital Signs Results Date Time Temp Pulse Resp B/P (MAP) Pulse Ox O2 Delivery O2 Flow Rate FiO2 06/27/17 08:29 98.1 74 20 119/57 (77) 100 06/27/17 06:00 16 06/27/17 03:30 98.0 60 16 122/75 (91) 98 06/27/17 00:00 98.0 66 17 125/65 (85) 97 06/26/17 23:00 16 06/26/17 21:50 97.2 64 18 126/62 (83) 98 06/26/17 20:10 78 15 141/71 (94) 98 Nasal Cannula 3 06/26/17 19:20 78 15 118/59 (78) 98 Nasal Cannula 3 06/26/17 19:00 83 15 115/58 (77) 98 Nasal Cannula 3 06/26/17 18:30 83 15 118/55 (76) 98 Nasal Cannula 3 06/26/17 18:05 16 06/26/17 18:00 68 16 132/65 (87) 98 Nasal Cannula 3 06/26/17 17:45 83 16 127/70 (89) 98 Nasal Cannula 3 06/26/17 17:30 90 16 120/65 (83) 98 Nasal Cannula 3 06/26/17 17:15 94 17 110/64 (79) 100 Nasal Cannula 3 06/26/17 17:00 94 15 107/59 (75) 100 Nasal Cannula 3 06/26/17 16:46 97.4 100 15 131/77 (95) 100 Nasal Cannula 3 06/28/17 07:00 Output Total 1750 ml Balance -1750 ml Constitutional Vital Signs Date Time Temp Pulse Resp B/P (MAP) Pulse Ox O2 Delivery O2 Flow Rate FiO2 06/27/17 08:29 98.1 74 20 119/57 (77) 100 06/27/17 06:00 16 06/27/17 03:30 98.0 60 16 122/75 (91) 98 06/27/17 00:00 98.0 66 17 125/65 (85) 97 06/26/17 23:00 16 06/26/17 21:50 97.2 64 18 126/62 (83) 98 06/26/17 20:10 78 15 141/71 (94) 98 Nasal Cannula 3 06/26/17 19:20 78 15 118/59 (78) 98 Nasal Cannula 3 06/26/17 19:00 83 15 115/58 (77) 98 Nasal Cannula 3 06/26/17 18:30 83 15 118/55 (76) 98 Nasal Cannula 3 06/26/17 18:05 16 06/26/17 18:00 68 16 132/65 (87) 98 Nasal Cannula 3 06/26/17 17:45 83 16 127/70 (89) 98 Nasal Cannula 3 06/26/17 17:30 90 16 120/65 (83) 98 Nasal Cannula 3 06/26/17 17:15 94 17 110/64 (79) 100 Nasal Cannula 3 06/26/17 17:00 94 15 107/59 (75) 100 Nasal Cannula 3 06/26/17 16:46 97.4 100 15 131/77 (95) 100 Nasal Cannula 3 06/28/17 07:00 Output Total 1750 ml Balance -1750 ml (Nicolette Farfan) Physical Exam Ms. Menezes is alert, awake and oriented to time, place and person. Speech is fluent. Cranial nerve examination: pupils equal, round and reactive to light. Motor: proximal exam limited due to post op pain, moves 5/5 distally. Resp: clear, nonlabored, pulse ox 98% Skin: warm, dry (Nicolette Farfan) Medications Current Medications Current Medications Medications (Trade) Dose Ordered Sig/Jacob Route PRN Reason Start Time Stop Time Status Last Admin Dose Admin Vancomycin/Sodium Chloride 200 ml @ 200 mls/hr LEATHER COLORER IV 06/26/17 10:00 06/29/17 09:59 06/26/17 14:42 Lactated Ringer's 1,000 ml @ 30 mls/hr Q24H PRN IV SEE LABEL COMMENTS 06/26/17 10:00 06/29/17 09:59 06/26/17 10:30 Sodium Chloride 500 ml @ 30 mls/hr [id number] PRN IV SEE LABEL COMMENTS 06/26/17 10:00 06/29/17 09:59 Metoprolol Tartrate (Lopressor) 25 mg LEATHER COLORER PRN PO SEE LABEL COMMENTS 06/26/17 10:00 06/29/17 09:59 Povidone Iodine (Betadine 5% Antisepsis Kit) 1 applic LEATHER COLORER PRN EACH NARE SEE LABEL COMMENTS 06/26/17 10:00 06/29/17 09:59 Chlorhexidine Gluconate (Chlorhexidine 2% Cloth) 3 pack LEATHER COLORER PRN TOPICAL SEE LABEL COMMENTS 06/26/17 10:00 06/29/17 09:59 06/26/17 10:15 Insulin Human Regular (NovoLIN R INJ) See Protocol Table ... LEATHER COLORER PRN SQ SEE PROTOCOL TABLE 06/26/17 10:00 06/29/17 09:59 Potassium Chloride/Sodium Chloride 1,000 ml @ 100 mls/hr Q10H IV 06/26/17 14:30 06/27/17 04:46 Cefazolin Sodium 2000 mg/Sodium Chloride 120 ml @ 100 mls/hr Q8H IV 06/26/17 20:00 06/27/17 13:11 06/27/17 04:45 Pantoprazole Sodium (Protonix Inj) 40 mg DAILY IVP 06/27/17 09:00 06/27/17 08:36 Morphine Sulfate (Morphine Inj) 2 mg Q2H PRN IV PUSH PAIN SCALE 1 TO 6 06/26/17 13:15 Morphine Sulfate (Morphine Inj) 4 mg Q2H PRN IV PUSH PAIN SCALE 7 TO 10 06/26/17 13:15 Acetaminophen (Tylenol) 650 mg Q4H PRN PO TEMPERATURE > 101.5 F 3/20/18 13:15 06/27/17 01:27 Naloxone HCl (Narcan Inj) 0.4 mg UNSCH PRN IV PUSH RESPIRATORY RATE LESS THAN 10 06/26/17 13:15 Diphenhydramine HCl (Benadryl Inj) 25 mg Q6H PRN IV PUSH ITCHING 06/26/17 13:15 Hydromorphone HCl (Dilaudid CHEF FRENCH Inj) 6 mg UNSCH IV 06/26/17 13:15 06/26/17 18:05 CHEF FRENCH Dosage Infused (Pha) 1 Q8HR .XX 06/26/17 14:00 06/27/17 06:00 Acetaminophen/ Hydrocodone Bitart ([place] 5-325 Mg) 1 tab Q6H PRN PO PAIN SCALE 1-10 06/26/17 13:15 Levothyroxine Sodium (Synthroid) 150 mcg DAILY@0600 PO 06/27/17 06:00 06/27/17 07:36 Miscellaneous Information ALL NURSING DEPARTME... UNSCH PRN .XX SEE LABEL COMMENTS 06/26/17 16:44 06/27/17 16:43 (Nicolette Farfan) Medical Decision Making MDM Remarks 42 y/o female s/p redo L4-L5 right hemilaminectomy, interbody arthrodhesis using PEEK cage and autologous bone graft, L4-L5 instrumental fixation using transpedicular screws and rods, L4-L5 posterolateral fusion using autologous bone graft and demineralized bone matrix 06/26/17 (Nicolette Farfan) Plan Plan Remarks cont postop pain control with CHEF FRENCH IS every hour cont strict bed rest today per Dr. Holden, [facility] upto 20 degrees, log roll every 2 hours PT, start mobilizing OOB tomorrow morning with LSO SCDs and TEDs for dvt prophylaxis protonix for gi prophylaxis (Nicolette Farfan) Attending Statement The exam, history, and the medical decision-making described in the above note were completed with the assistance of the mid-level provider. I reviewed and agree with the findings presented. I attest that I had a [id number] encounter with the patient on the same day, and personally performed and documented my assessment and findings in the medical record. (Miles Holden MD) Nicolette Farfan Jun 27, 2017 10:22 Miles Holden MD Jun 29, 2017 13:17
[2017-06-27 11:49] VITALS: BP 108/58; PULSE 78; RESP 20; TEMP 98.1; O2SAT 96
[2017-06-27] MEDS: HYDROmorphone HCL PCA 6 MG/30 ML IV SCH (12:56)
[2017-06-27 15:40] VITALS: BP 105/52; PULSE 72; RESP 18; TEMP 98.7; O2SAT 96
[2017-06-27] MEDS: ACETAMINOPHEN/HYDROcodone 325 MG/5 MG TAB PO PRN ×2 (17:08→23:19)
[2017-06-27 20:00] VITALS: BP 122/63; PULSE 78; RESP 18; TEMP 98.1; O2SAT 96
[2017-06-28] VITALS: BP 127/64; PULSE 76; RESP 18; TEMP 98.3; O2SAT 96
[2017-06-28 04:00] VITALS: BP 137/64; PULSE 88; RESP 18; TEMP 99.1; O2SAT 91
[2017-06-28] MEDS: LEVOTHYROXINE SODIUM 150 MCG TAB PO SCH (05:59)
[2017-06-28] MEDS: PCA - TOTAL MG DILAUDID DELIVERED PER SHIFT SCH ×3 (05:59→22:13)
[2017-06-28] MEDS: NS + KCL 20 MEQ INJ 1,000 ML IV SCH ×3 (06:30→19:31)
[2017-06-28] MEDS: ACETAMINOPHEN 325 MG TAB PO PRN (08:42)
[2017-06-28] MEDS: PANTOPRAZOLE SODIUM 40 MG VIAL IVP SCH (08:46)
[2017-06-28] MEDS ORDERED: INFLUENZA VIRUS VACCINE (QUADRIVALENT) 0.5 ML SYR IM ONE (10:00)
[2017-06-28 11:55] VITALS: BP 113/71; PULSE 90; RESP 20; TEMP 98; O2SAT 94
[2017-06-28 15:50] VITALS: BP 135/69; PULSE 83; RESP 20; TEMP 98.3; O2SAT 96
--- NOTE | 2017-06-28 17:31 | HHI.DCPOC ---
Discharge Care Plan Diagnosis: (1) S/P lumbar spinal fusion Goals to Promote Your Health * To prevent worsening of your condition and complications * To maintain your health at the optimal level Directions to Meet Your Goals Take your medications as prescribed Follow your dietary instruction Follow activity as directed Keep your appointments as scheduled Take your immunizations and boosters as scheduled If your symptoms worsen call your PCP, if no PCP go to Urgent Care Center or Emergency Room Smoking is Dangerous to Your Health. Avoid second hand smoke Call the 24-hour hour crisis hotline for domestic abuse at Nicolette Farfan Jun 28, 2017 17:31
[2017-06-28] MEDS ORDERED: HYDR-3583 PO (18:21)
[2017-06-28] MEDS: ACETAMINOPHEN/HYDROcodone 325 MG/10 MG TAB PO PRN ×2 (18:35→22:11)
[2017-06-28 20:00] VITALS: BP 132/60; PULSE 92; RESP 18; TEMP 98.8; O2SAT 97
[2017-06-29] VITALS: BP 129/60; PULSE 91; RESP 18; TEMP 98.3; O2SAT 96
[2017-06-29] MEDS: ACETAMINOPHEN/HYDROcodone 325 MG/10 MG TAB PO PRN ×3 (03:25→13:38)
[2017-06-29 04:00] VITALS: BP 128/59; PULSE 78; RESP 19; TEMP 98; O2SAT 95
[2017-06-29] MEDS: LEVOTHYROXINE SODIUM 150 MCG TAB PO SCH (06:40)
[2017-06-29] MEDS: PCA - TOTAL MG DILAUDID DELIVERED PER SHIFT SCH (06:42)
--- NOTE | 2017-06-29 07:23 | HHI.NSPN ---
(Nicolette Farfan) Note Status Status: Progress Note (Nicolette Farfan) Interval History Interval History THIS NOTE IS FOR 06/28/17 WHEN PATIENT WAS SEEN AND EXAMINED Ms. Menezes s/p redo L4-L5 right hemilaminectomy, interbody arthrodesis using PEEK cage and autologous bone graft, L4-L5 instrumental fixation using transpedicular screws and rods, L4-L5 posterolateral fusion using autologous bone graft and demineralized bone matrix. Microsurgical dissection on Jun 26, 2017 for severe degenerative lumbar disk disease and recurrent disk herniation at L4-L5. 06/27: doing well, remains bed rest. denies chest pain, difficulty breathing. surgical pain controlled on REPAIRER SHOE STICKS. pulse ox 98%. 06/28: pain controlled, only requring REPAIRER SHOE STICKS every few hours. PT in room to mobilize. reports radiculopathy improved (Nicolette Farfan) Labs, Micro, & Vital Signs Results Date Time Temp Pulse Resp B/P (MAP) Pulse Ox O2 Delivery O2 Flow Rate FiO2 06/29/17 06:42 19 06/29/17 04:28 19 06/29/17 04:00 98.0 78 19 128/59 (82) 95 06/29/17 00:00 98.3 91 18 129/60 (83) 96 06/28/17 23:14 19 06/28/17 22:13 19 06/28/17 20:00 98.8 92 18 132/60 (84) 97 06/28/17 15:50 98.3 83 20 135/69 (91) 96 06/28/17 14:00 20 06/28/17 11:55 98.0 90 20 113/71 (85) 94 Constitutional Vital Signs Date Time Temp Pulse Resp B/P (MAP) Pulse Ox O2 Delivery O2 Flow Rate FiO2 06/29/17 06:42 19 06/29/17 04:28 19 06/29/17 04:00 98.0 78 19 128/59 (82) 95 06/29/17 00:00 98.3 91 18 129/60 (83) 96 06/28/17 23:14 19 06/28/17 22:13 19 06/28/17 20:00 98.8 92 18 132/60 (84) 97 06/28/17 15:50 98.3 83 20 135/69 (91) 96 06/28/17 14:00 20 06/28/17 11:55 98.0 90 20 113/71 (85) 94 (Nicolette Farfan) Review of Systems Constitutional: DENIES: Fever, Chills Eyes: DENIES: Double Vision Respiratory: DENIES: Apneas, Cough, Wheezing, Shortness of breath Cardiovascular: DENIES: Chest pain Musculoskeletal: COMPLAINS OF: Back pain Neurologic: COMPLAINS OF: Paresthesias, DENIES: Localized weakness (Nicolette Farfan) Physical Exam THIS NOTE IS FOR 06/28/17 WHEN PATIENT WAS SEEN AND EXAMINED Ms. Menezes is alert, awake and oriented to time, place and person. Speech is fluent. Cranial nerve examination: pupils equal, round and reactive to light. Motor: moves extremities 5/5 Resp: clear, Skin: warm, dry Wound clean, dry with Optifoam dressing in place. (Nicolette Farfan) Medical Decision Making MDM Remarks THIS NOTE IS FOR 06/28/17 WHEN PATIENT WAS SEEN AND EXAMINED 42 y/o female s/p redo L4-L5 right hemilaminectomy, interbody arthrodhesis using PEEK cage and autologous bone graft, L4-L5 instrumental fixation using transpedicular screws and rods, L4-L5 posterolateral fusion using autologous bone graft and demineralized bone matrix 06/26/17 doing well, surgical pain controlled (Nicolette Farfan) Plan Plan Remarks THIS NOTE IS FOR 06/28/17 WHEN PATIENT WAS SEEN AND EXAMINED cont REPAIRER SHOE STICKS today, dw weaning off and transition to PO meds tomorrow PT, mobilizing OOB with LSO cont SCDs and TEDs for dvt prophylaxis protonix for gi prophylaxis dc cardozo catheter anticipate dc home over the weekend (Nicolette Farfan) Attending Statement The exam, history, and the medical decision-making described in the above note were completed with the assistance of the mid-level provider. I reviewed and agree with the findings presented. I attest that I had a [id number] encounter with the patient on the same day, and personally performed and documented my assessment and findings in the medical record. (Miles Holden MD) Nicolette Farfan Jun 29, 2017 07:23 Miles Holden MD Jul 01, 2017 14:04
[2017-06-29 08:00] VITALS: BP 122/58; PULSE 75; RESP 18; TEMP 97.3; O2SAT 96
[2017-06-29] MEDS: PANTOPRAZOLE SODIUM 40 MG VIAL IVP SCH (08:58)
[2017-06-29 12:00] VITALS: BP 116/68; PULSE 80; RESP 18; TEMP 98; O2SAT 97
[2017-06-29 16:00] VITALS: BP 134/67; PULSE 77; RESP 18; TEMP 97.9; O2SAT 98
--- NOTE | 2017-06-29 18:14 | HHI.NSPN ---
History Interval History Status post lumbar fusion. Patient reports she is doing well and wants to go home. Patient and state that Dr. Holden told them they would be able to leave today. Patient reports ambulating with rolling walker without any problems. She reports she has all necessary appliances at home System Review Comments No change Exam Results Vital Signs Date Time Temp Pulse Resp B/P (MAP) Pulse Ox O2 Delivery O2 Flow Rate FiO2 06/29/17 16:00 97.9 77 18 134/67 (89) 98 06/26/17 20:10 Nasal Cannula 3 Intake and Output 06/29/17 06/29/17 06/30/17 08:00 16:00 00:00 Intake Total 350 ml Output Total 450 ml Balance -100 ml Physical Examination Patient is alert and awake. Follows commands well. Oriented 3. She is able to get out of bed independently. She is able to walk with a rolling walker independently. Moves all extremities well Dressing is dry and intact Medical Decision Making Impression and Plan Patient is doing well. Desires discharge home. Reports Dr. Holden told her she could go home today. She is able to ambulate independently Ramos Moreno MD Jun 29, 2017 18:14
--- NOTE | 2017-07-03 10:32 | HHI.DS ---
Discharge Summary Admission Date Jun 26, 2017 at 09:25 Discharge Date: Jun 29, 2017 Admitting Diagnosis Pt Condition on Discharge: Stable Discharge Disposition: Discharge Home Discharge Instructions DIET: Follow Instructions for: Heart Healthy Diet ADDITIONAL Activity Instructio: no strenuous activities, bending, twisting heavy lifting. avoid falls. wear brace when out of bed Nicolette Farfan Jul 03, 2017 10:32
== END 2017-06-29 18:59 | disposition home or self-care (01) | DRG 460 ==
LOC: HSDI 09:25 → N05B 20:36
PROVIDERS: ADMIT Neurological Surgery; ATTEND Neurological Surgery
PROC: 0ST20ZZ Resection of Lumbar Vertebral Disc, Open Approach (ICD-10-PCS; 2017-06-26)
PROC: 0QB33ZZ Excision of Left Pelvic Bone, Percutaneous Approach (ICD-10-PCS; 2017-06-26)
PROC: 4A11X4G Monitoring of Peripheral Nervous Electrical Activity, Intraoperative, External Approach (ICD-10-PCS; 2017-06-26)
PROC: 0SG00AJ Fusion of Lumbar Vertebral Joint with Interbody Fusion Device, Posterior Approach, Anterior Column, Open Approach (ICD-10-PCS; principal; 2017-06-26 12:02)
DX: M51.16 Intervertebral disc disorders with radiculopathy, lumbar region (principal); M51.26 Other intervertebral disc displacement, lumbar region
CPT/HCPCS: 72100; 76000; 80048; 82550; 82552; 83605; 84484; 85025; 85730; 86850; 86900; 86901; 94150; C1713; C9113; J0131; J0690; J1100; J1170; J1580; J2250; J2270; J2405; J3010; J3370; J3480; J7120; J8501; L0200; L0484